=== PATIENT | male | born 1990 | race Caucasian/White ===

== ENCOUNTER 2019-05-19 16:21 | Emergency (ER) | payer SELFPAY ==
[2019-05-19 16:35] VITALS: BP 110/65
--- NOTE | 2019-05-19 18:27 | ER Document Report ---
ED Medical Screen (RME) - General Chief Complaint: Hemorrhoids Stated Complaint: RECTAL PAIN Time Seen by Provider: 05/19/19 18:07 Notes: Patient is a 28-year-old male who presents the emergency department with complaints of constipation. He has not had a bowel movement in 5 to 6 days. He states that he also has hemorrhoids that will not go away. He attempted to take Dulcolax [id number] suppository yesterday, but had no relief of his symptoms and did not have a bowel movement. Patient states that he has a little bit of pain on the left side of his abdomen. Patient states that he has a poor diet and he sits on the toilet for long periods of time. Patient admits to heroin use. Exam: Tender left lower abdomen. I have greeted and performed a rapid initial assessment of this patient. A comprehensive ED assessment and evaluation of the patient, analysis of test results and completion of medical decision making process will be conducted by an additional ED providers. TRAVEL OUTSIDE OF THE [place] IN LAST 30 DAYS: No - Related Data Allergies/Adverse Reactions: acetaminophen [From Tylenol] Allergy (Verified 12/30/14 16:00) tramadol [Tramadol] Adverse Reaction (Intermediate, Verified 12/30/14 16:00) nausea / vomiting hydrocodone bitartrate [From Vicodin] Adverse Reaction (Verified 12/30/14 16:00) nausea / vomiting tramadol HCl [From Ultram] Adverse Reaction (Verified 12/30/14 16:00) nausea / vomiting Past Medical History - Social History Chew tobacco use (# tins/day): No Frequency of alcohol use: None Drug Abuse: Heroin - Past Medical History Cardiac Medical History: Denies: Hx Coronary Artery Disease, Hx Heart Attack, Hx Hypertension Pulmonary Medical History: Denies: Hx Asthma, Hx Bronchitis, Hx COPD, Hx Pneumonia Neurological Medical History: Denies: Hx Cerebrovascular Accident, Hx Migraine, Hx Seizures Renal/ Medical History: Denies: Hx Peritoneal Dialysis GI Medical History: Reports: Hx Gastroesophageal Reflux Disease Musculoskeltal Medical History: Denies Hx Arthritis Past Surgical History: Reports: Hx Orthopedic Surgery - right hand, Hx Tonsillectomy. Denies: Hx Pacemaker - Immunizations Hx Diphtheria, Pertussis, Tetanus Vaccination: Yes Physical Exam - Vital signs Vitals: Temp Pulse Resp BP Pulse Ox 98.4 F 91 18 110/65 98 07/02/19 16:33 05/19/19 16:33 05/19/19 16:33 05/19/19 16:33 05/19/19 16:33 Course - Vital Signs Vital signs: Temp Pulse Resp BP Pulse Ox 98.4 F 91 18 110/65 98 05/19/19 16:33 05/19/19 16:33 05/19/19 16:33 05/19/19 16:33 05/19/19 16:33
--- NOTE | 2019-05-19 18:50 | RADIOLOGY REPORT (SQ) ---
EXAM DESCRIPTION: KUB/ABDOMEN (SINGLE VIEW) COMPLETED DATE/TIME: 05/19/2019 6:42 pm REASON FOR STUDY: No BM in 5-6 days COMPARISON: None. NUMBER OF VIEWS: One view. TECHNIQUE: Supine radiographic image of the abdomen acquired. LIMITATIONS: None. FINDINGS: BOWEL GAS PATTERN: Nonobstructive pattern. Large amount of retained stool. CALCIFICATIONS: No suspicious calcifications. SOFT TISSUES: No gross mass or suggestion of organomegaly. HARDWARE: None in the abdomen. BONES: No acute fracture. No worrisome bone lesions. OTHER: No other significant finding. IMPRESSION: Constipation. TECHNICAL DOCUMENTATION: JOB ID: [id number] [employer]- All Rights Reserved Reading location - IP/workstation name: [email or web address]
== END 2019-05-19 20:13 | disposition left against medical advice (07) ==
LOC: ER 16:21
DX: K59.00 Constipation, unspecified (principal); K64.9 Unspecified hemorrhoids; Z88.8 Allergy status to other drugs, medicaments and biological substances; Z53.20 Procedure and treatment not carried out because of patient's decision for unspecified reasons
CPT/HCPCS: 74018; 99281